=== PATIENT | female | born 1975 | race Caucasian/White ===

== ENCOUNTER 2017-08-04 09:11 | Emergency (ER) | payer OTHER ==
[~2017-08-04] VITALS: Ht 165.1 cm; Wt 79.4 kg
[2017-08-04] MEDS ORDERED: GABAPENTIN 100100 MG PO (09:27)
[2017-08-04] MEDS ORDERED: FLEXERIL PO (09:27)
[2017-08-04] MEDS ORDERED: PREDNISONE 20 M20 MG PO (09:28)
[2017-08-04] MEDS ORDERED: ASPIR 8181 MG PO (09:28)
[2017-08-04 09:44] LABS: URINE BILIRUBIN NEGATIVE (Negative); URINE BLOOD 2+ (Negative); URINE COLOR YELLOW; URINE GLUCOSE-RANDOM* NEGATIVE (Negative); URINE KETONES NEGATIVE (Negative); URINE NITRITE NEGATIVE (Negative); URINE PROTEIN (DIPSTICK) NEGATIVE (Negative); URINE UROBILINOGEN 0.2 E.U./dl (0.2-1.0)
[2017-08-04 09:55] LABS: CASTS None Seen /LPF (None Seen); SQUAMOUS >10 Many /LPF (0-3)
[2017-08-04 09:56] LABS: CRYSTALS None Seen /LPF (None Seen); URINE RBC 3-10 Few /HPF (0-2); URINE WBC 0-5 Rare /HPF (0-5)
[2017-08-04] MEDS ORDERED: HYDROCODONE-AP1 EAC6 PO ×2 (11:20→11:21)
[2017-08-04 11:56] VITALS: BP 128/59
== END 2017-08-04 11:57 | disposition home or self-care (01) ==
LOC: ER 09:11
PROVIDERS: Nurse Practitioner Family
DX: M54.16 Radiculopathy, lumbar region (principal); Z79.82 Long term (current) use of aspirin; F17.210 Nicotine dependence, cigarettes, uncomplicated; Z91.013 Allergy to seafood

== ENCOUNTER 2017-12-20 14:07 | Emergency (ER) | payer OTHER ==
[~2017-12-20] VITALS: Ht 172.7 cm; Wt 90.7 kg
--- NOTE | ~2017-12-20 | EKG ---
[address] [address] ELECTROCARDIOGRAM REPORT Name: JAIDA ESCOBAR Room #: DEP [place]#: [id number] Admission: 12/20/17 Attend Phys: Discharge: 12/20/17 Date of : 75 Report #: [id number] THIS REPORT FOR: //name// [facility] ED Test Date: 2017-12-20 Test Time: 14:18:33 Pat Name: JAIDA ESCOBAR Department: Room: Gender: F Care Worker: JESSICA : 1975 Requested By: Parul Edmonds Order Number: [id number] MD: Akbar Allen Measurements Intervals [place] Rate: 75 P: 65 IN: 161 QRS: 43 QRSD: 91 T: 35 QT: 388 QTc: 434 Interpretive Statements Sinus rhythm No previous ECG available for comparison Electronically Signed On 12-21-2017 8:39:34 MYSQL DBA by Akbar Allen [email or web address] <ELECTRONICALLY SIGNED> By: Akbar Allen MD 12/21/17 0839 [id number] 1418 Akbar Allen MD /DIEGO
[~2017-12-20 14:07] MED LIST: ASPIR 8181 MG PO; FLEXERIL PO; GABAPENTIN 100100 MG PO; HYDROCODONE-AP1 EAC6 PO; PREDNISONE 20 M20 MG PO
[2017-12-20 14:59] LABS: HEMATOCRIT 42.5 % (37.0-47.0); HEMOGLOBIN 14.2 gm/dL (12.0-15.0); MCH 27.9 pg (26.0-34.0); MCHC 33.4 g/dL (28.0-37.0); MCV 83.6 fL (80.0-100.0); RBC 5.09 mil/uL (4.20-5.00); RDW 13.3 % (10.5-14.5); WBC 10.9 thou/uL (4.0-11.0)
[2017-12-20 15:03] LABS: ANION GAP 10 mmol/L (7-16); BUN 11 mg/dL (7-18); CALCIUM 9.2 mg/dL (8.5-10.1); CHLORIDE 103 mmol/L (98-107); CO2 25 mmol/L (21-32); CREATININE 0.8 mg/dL (0.6-1.0); GLUCOSE 78 mg/dL (74-106); POTASSIUM 3.9 mmol/L (3.5-5.1); SODIUM 138 mmol/L (136-145)
[2017-12-20 15:12] LABS: TROPONIN-I < 0.04 ng/mL (<0.06)
[2017-12-20 15:20] LABS: ABSOLUTE NEUTROPHILS 6.6 thou/uL (1.4-8.2); PLATELET COUNT 364 thou/uL (150-400)
== END 2017-12-20 17:17 | disposition home or self-care (01) ==
LOC: ER 14:07
PROVIDERS: Emergency Medicine
DX: R07.9 Chest pain, unspecified (principal); R06.02 Shortness of breath; R10.10 Upper abdominal pain, unspecified; F17.210 Nicotine dependence, cigarettes, uncomplicated; Z91.013 Allergy to seafood

== ENCOUNTER 2017-12-27 19:01 | Emergency (ER) | payer OTHER ==
[~2017-12-27] VITALS: Ht 172.7 cm; Wt 90.7 kg
[2017-12-27 19:30] LABS: URINE BILIRUBIN NEGATIVE (Negative); URINE BLOOD 1+ (Negative); URINE CLARITY CLEAR; URINE COLOR YELLOW; URINE GLUCOSE-RANDOM* NEGATIVE (Negative); URINE KETONES NEGATIVE (Negative); URINE LEUKOCYTES-REFLEX NEGATIVE (Negative); URINE NITRITE-REFLEX NEGATIVE (Negative); URINE PROTEIN (DIPSTICK) NEGATIVE (Negative); URINE UROBILINOGEN 0.2 E.U./dl (0.2-1.0)
[2017-12-27 19:36] LABS: BACTERIA-REFLEX 1-9 Few /HPF (None Seen); CASTS None Seen /LPF (None Seen); CRYSTALS None Seen /LPF (None Seen); SQUAMOUS >10 Many /LPF (0-3); URINE RBC 3-10 Few /HPF (0-2); URINE WBC-REFLEX 0-5 Rare /HPF (0-5)
[2017-12-27 19:38] LABS: ABSOLUTE NEUTROPHILS 11.6 thou/uL (1.4-8.2); BASOPHILS 1.2 % (0.0-2.0); EOSINOPHILS 1.3 % (0.0-3.0); HEMATOCRIT 39.9 % (37.0-47.0); HEMOGLOBIN 13.3 gm/dL (12.0-15.0); LYMPHOCYTES 16.6 % (24.0-44.0); MCH 27.8 pg (26.0-34.0); MCHC 33.5 g/dL (28.0-37.0); MCV 82.9 fL (80.0-100.0); MONOCYTES 10.4 % (1.0-8.0); PLATELET COUNT 327 thou/uL (150-400); POLYS 70.5 % (36.0-66.0); RBC 4.81 mil/uL (4.20-5.00); RDW 13.4 % (10.5-14.5); WBC 16.5 thou/uL (4.0-11.0)
[2017-12-27 19:44] LABS: CALCIUM 8.9 mg/dL (8.5-10.1); CREATININE 1.3 mg/dL (0.6-1.0); POTASSIUM 3.7 mmol/L (3.5-5.1)
[2017-12-27 19:50] LABS: ALBUMIN 3.6 g/dL (3.4-5.0); TOTAL BILIRUBIN 0.7 mg/dL (<0.1-1.0); TOTAL PROTEIN 7.2 g/dL (6.4-8.2)
[2017-12-27] MEDS ORDERED: PERCOCET 5-3251 EACH PO (21:28)
[2017-12-27] MEDS ORDERED: FLOMAX0.4 MG PO (21:34)
[2017-12-27] MEDS ORDERED: ONDANSETRON HCL4 M2 PO (21:34)
[2017-12-27] MEDS ORDERED: TORADOL 10 MG T10 MG PO (21:34)
[2017-12-27] MEDS ORDERED: CIPRO500 MG PO (21:34)
== END 2017-12-27 22:07 | disposition home or self-care (01) ==
LOC: ER 19:01
PROVIDERS: Emergency Medicine
DX: N20.1 Calculus of ureter (principal); F17.210 Nicotine dependence, cigarettes, uncomplicated

== ENCOUNTER 2018-05-02 10:06 | Emergency (ER) | payer OTHER ==
[~2018-05-02] VITALS: Ht 172.7 cm; Wt 90.7 kg
[~2018-05-02 10:06] MED LIST changes: +CIPRO500 MG PO; +FLOMAX0.4 MG PO; +ONDANSETRON HCL4 M2 PO; +PERCOCET 5-3251 EACH PO; +TORADOL 10 MG T10 MG PO
[2018-05-02] MEDS ORDERED: MOBIC15 MG PO (10:51)
[2018-05-02 11:07] VITALS: BP 115/44
== END 2018-05-02 11:00 | disposition home or self-care (01) ==
LOC: ER 10:06
DX: S93.401A Sprain of unspecified ligament of right ankle, initial encounter (principal); F17.210 Nicotine dependence, cigarettes, uncomplicated; X50.0XXA Overexertion from strenuous movement or load, initial encounter; Y93.89 Activity, other specified; Y92.89 Other specified places as the place of occurrence of the external cause; Y99.8 Other external cause status

== ENCOUNTER → 2020-06-08 | Outpatient (CLI) | payer BC ==
[~2020-06-08] MED LIST changes: +MOBIC15 MG PO; +OMEPRAZOLE40 MG PO; +TYLENOL EXTRA500 MG PO
== END ==
LOC: LAB 10:28
PROVIDERS: ATTEND Student in an Organized Health Care Education/Training Program
DX: Z01.812 Encounter for preprocedural laboratory examination (principal); Z11.59 Encounter for screening for other viral diseases

== ENCOUNTER 2020-06-13 08:25 | Day surgery (SDC) | payer BC ==
[~2020-06-13] VITALS: Ht 172.7 cm; Wt 92.1 kg
[2020-06-13 09:29] VITALS: BP 108/57
[2020-06-13 12:26] VITALS: BP 108/57
--- NOTE | 2020-06-17 08:54 | O ---
[address] [address] OPERATIVE REPORT Name: JAIDA ESCOBAR Room #: DEP [facility]..#: [id number] Admission: 06/13/20 Attend Phys: Marin Melton MD Discharge: 06/13/20 Date of : 75 Report #: [id number] THIS REPORT FOR: cc: LLOYD SAEZ MD, LLOYD Melton,Marin Lopez MD ~ CC: Marin SAEZ DATE OF SERVICE: 06/13/2020 SERVICE: Orthopedics. FACILITY: [facility]. SURGEON: Marin Melton MD ORTHOPAEDIC DOCTOR: Erinn Maloney NP PREOPERATIVE DIAGNOSES: 1. Right hip pain. 2. Right hip femoroacetabular impingement. 3. Right hip labral tear. 4. Right hip chondromalacia. 5. Right hip trochanteric bursitis. POSTOPERATIVE DIAGNOSES: 1. Right hip pain. 2. Right hip femoroacetabular impingement. 3. Right hip labral tear. 4. Right hip chondromalacia. 5. Right hip trochanteric bursitis. PROCEDURES: 1. Right hip arthroscopic labral repair. 2. Right hip arthroscopic Cam osteochondroplasty. 3. Right hip arthroscopic sub-spine decompression. 4. Right hip arthroscopic acetabular chondroplasty. 5. Right hip trochanteric bursectomy. COMPLICATIONS: None. SPECIMENS: None. FINDINGS: 1. Calcium within the anterolateral labrum, treated with debridement of the [address] [place] [address] OPERATIVE REPORT Name: JAIDA ESCOBAR Room #: DEP [facility]..#: [id number] Admission: 06/13/20 Attend Phys: Marin Melton MD Discharge: 06/13/20 Date of : 75 Report #: [id number] labral calcinosis. 2. Degenerative labral tear with overall satisfactory tissue quality, repaired with [place] CinchLock suture anchor x 2. 3. Focal extraarticular subspine impingement lesion, treated with subspine recession. 4. Large detached articular cartilage flap tear of the anterolateral acetabulum with surface area measuring approximately 12 x 15 mm. This was treated with resection with biter and shaver. 5. Trochanteric bursectomy performed. HISTORY: The patient is a 44-year-old female with a history of bilateral hip issues with the right side being more symptomatic than the left. She has mark anthony osteoarthritis of the left hip, but her joint space was well maintained on the right hip and she was felt to be a candidate for arthroscopic treatment as she had a Tonnis grade of 1 and joint space measured at 3.2 mm. 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 There was some mild articular cartilage chondromalacia of the acetabulum on the MRI as well, but there was no evidence of significant arthrosis, so she remained a candidate for arthroscopic intervention. She had failed conservative treatment including rest, activity modifications, physical therapy, oral medicines and intra-articular injection modality. She had temporary pain relief with intra-articular injection, but had recurrence of symptoms and symptoms had been actively managed for greater than 6 months and she continued to have lifestyle-limiting pain and wished to move forward with definitive treatment. Risks, benefits, alternatives and indication of surgery discussed with her in detail. Risks include but not limited to pain, bleeding, infection, injury to nerves or blood vessels, persistent pain despite surgical intervention, failure of any repairs, progression of preexisting chondral injury, stiffness, need for further surgery including conversion to arthroplasty as well complications related to anesthesia such as stroke, heart attack, pulmonary complications, thromboembolic disease and . Despite these risks, she wished to proceed. PROCEDURE IN DETAIL: After the right lower extremity was correctly identified in the preoperative holding area as the operative extremity. The patient was taken to the operating room where general anesthesia was induced without complication. She was padded appropriately. Prophylactic antibiotics were administered at appropriate time. C-arm was brought in to assess the femoral head and neck junction, which had a Cam deformity, which was quite extensive. This extended from the -5 [address] the way to the 90-degree position and had a maximal alpha angle of approximately 80 degrees. Right hip was then prepped and draped in standard sterile fashion. Timeout procedure performed. Traction was applied. Standard anterolateral viewing portal was established followed by anteromedial working portal under fluoroscopic visualization. [address] [address] OPERATIVE REPORT Name: JAIDA ESCOBAR Room #: DEP [facility] [place]#: [id number] Admission: 06/13/20 Attend Phys: Marin Melton MD Discharge: 06/13/20 Date of : 75 Report #: [id number] Synovitis was resected with the shaver. The capsule was reflected off the dorsal side of the labrum and then the labral calcinosis could be visualized through the labrum and with gentle probing with the shaver I was able to liberate this and then resected with the shaver. The capsule was then debrided proximally allowing access to the extraarticular subspine impingement lesion and then this was resected with bur performing subspine decompression for the extraarticular component of her impingement. The bur was then used to abrade the acetabular rim to create a fresh bleeding surface for labral repair and then [place] CinchLock suture anchors x 2 were deployed in typical fashion with good cerclage sutures around the labrum. Final debridement was performed at this point. The traction was let down and attention was turned towards the peripheral compartment. The Cam osteoplasty was begun with the hip in extension because the Cam deformity extended very far proximally and then over the shoulder laterally. I then used the bur to sequentially perform the very large Cam osteoplasty in typical fashion working distally and medially and then down the neck and so in this area. I removed the instruments on 2 occasions, brought C-arm in, assessed the resection, identified some additional bone that needed to be resected and then placed the instruments back into the hip, completed the Cam osteoplasty and lavaged the bony debris. The instruments were then removed. Final x-rays were taken to confirm adequate resection. Instruments were placed back into the hip and then a total of four #2-0 Vicryl sutures were used to close the T-shaped capsulotomy. Scope was then oriented into the peritrochanteric space and a third portal was established with a triangulation and then a shaver was used to perform a standard trochanteric bursectomy in the typical fashion. After this was completed, instruments were removed. Portal sites were closed. Sterile dressing was applied and the patient was awakened from anesthesia in stable condition. There were no complications. All counts were correct. <ELECTRONICALLY SIGNED> By: Marin Melton MD 06/17/20 [id number] 1652 MD ward Garcia
== END 2020-06-13 13:15 | disposition home or self-care (01) ==
LOC: OR 08:25 → TBA 08:27 → OR 10:28
PROVIDERS: ATTEND Orthopaedic Surgery Sports Medicine
DX: M25.551 Pain in right hip (principal); S73.101A Unspecified sprain of right hip, initial encounter; M70.61 Trochanteric bursitis, right hip; M94.251 Chondromalacia, right hip; M25.851 Other specified joint disorders, right hip; K21.9 Gastro-esophageal reflux disease without esophagitis; F17.210 Nicotine dependence, cigarettes, uncomplicated; Z98.890 Other specified postprocedural states; Z79.899 Other long term (current) drug therapy; Z87.442 Personal history of urinary calculi; X58.XXXA Exposure to other specified factors, initial encounter; Y93.89 Activity, other specified; Y92.89 Other specified places as the place of occurrence of the external cause; Y99.8 Other external cause status
CPT/HCPCS: 50010; 50101; 50386; 51320; 51538; 52001; 52304; 52313; 56524; 56527; 57092; 57103; 62110; 62900; 64039; 70005